=== PATIENT | female | born 1980 | race Caucasian/White ===

== ENCOUNTER 2021-09-26 17:13 | Emergency (ER) | payer OTHER, SELFPAY ==
--- NOTE | ~2021-09-26 | XR_ITS ---
XR elbow LT 2V DATE: 09/26/2021 18:24 INDICATION: Reduction of left elbow dislocation TECHNIQUE: 3 views COMPARISON: Today's prereduction examination FINDINGS: There is reduction of the posterior dislocation of the radius and ulna. There is a comminut ed fracture of the head of the radius IMPRESSION: Comminuted radial head fracture Reduction of posterior dislocation Reviewed, dictated and finalized at location A.
--- NOTE | ~2021-09-26 | XR_ITS ---
XR elbow LT 2V DATE: 09/26/2021 17:32 INDICATION: Fall off a horse. Left elbow injury, deformity TECHNIQUE: 2 views COMPARISON: None FINDINGS: There is posterior dislocation of the radius and ulna at the elbow joint. No apparent fract ure is noted. IMPRESSION: Posterior dislocation of the radius and ulna at the elbow joint Reviewed, dictated and finalized at location A.
[2021-09-26 17:19] VITALS: BP 116/91; PULSE 94; RESP 18; TEMP 36.3; O2SAT 100
[2021-09-26] MEDS: ONDANSETRON INJ 4 MG/2 ML VIAL IV PUSH (18:06)
[2021-09-26] MEDS: MORPHINE SULFATE (*CRX) 4 MG/ML INJ IV PUSH (18:06)
--- NOTE | 2021-09-26 18:10 | ED.UPPEXIN ---
HPI - Extremity Injury (Upper) General Chief Complaint: Extremity Injury, Upper Stated Complaint: Left arm injury Time Seen by Provider: 09/26/21 17:31 History of Present Illness HPI narrative: Patient is a 41-year-old female who presents ER with left elbow pain and deformity. Patient was riding a horse at a walk when it became smooth and she fell off. She fell on an outstretched arm. She had sudden onset pain to her left elbow. No numbness or tingling. Unable to supinate or pronate. Has pain with trying to extend her fingers. She did not strike her head or lose consciousness. She is on no blood thinners. Related Data Allergies Allergy/AdvReac Type Severity Reaction Status Date / Time No Known Allergies Allergy Verified 09/26/21 19:05 Review of Systems Cardiovascular: Cardiovascular: Denies chest pain, Denies rapid heart rate and Denies radiating jaw, neck or arm pain Gastrointestinal: Gastrointestinal: Denies nausea and Denies vomiting Musculoskeletal: Musculoskeletal: Reports arthralgias, Reports joint swelling and Denies muscle cramps Neurologic: Denies syncope, Denies headache(s), Denies focal weakness and Denies numbness PMFSH Past Medical History Medical History (Updated 09/26/21 @ 19:08 by Barrie Guzman MD) Healthy female adult Surgical History Surgical History (Updated 09/26/21 @ 18:20 by Barrie Guzman MD) No pertinent past surgical history Social History Social History (Updated 09/26/21 @ 18:20 by Barrie Guzman MD) Smoking status: Never smoker Exam Narrative: GENERAL: Well-appearing, well-nourished, and in no acute distress. HEAD: Normocephalic, atraumatic. CHEST: Clear to auscultation. No respiratory distress. HEART: Regular rate and rhythm. Normal peripheral pulses. EXTREMITIES: Focused exam left upper extremity reveals deformity and tenderness to left elbow. Unable to flex or extend due to pain. Patient has no tenderness of the forearm or wrist. Patient cannot perform supination due to pain. Brisk capillary refill with 2+ radial pulses. SKIN: Warm, dry, no rash. NEURO: No focal deficits. Alert and oriented x3. PSYCH: Normal mood and affect. Course Course Emergency Course: Discussed case with Dr. Vaughn. On repeat films patient has a radial head fracture that cannot originally be seen. He would like the patient no long-arm posterior splint. He would like her to contact his office in the morning. She will likely be referred to [facility] to an elbow specialist. Patient has been informed of this. She had difficulty tolerating any splinting by the tech due to pain and anxiousness. Patient already received some morphine. We will give her some Valium for anxiety and muscle spasm. We will then resplint the arm. Vital Signs Vital signs: Vital Signs Temperature 97.3 F L 09/26/21 17:19 Pulse Rate 94 09/26/21 17:19 Respiratory Rate 18 09/26/21 17:19 Blood Pressure 116/91 H 09/26/21 17:19 Pulse Oximetry 100 09/26/21 17:19 Temperature 97.3 F L 09/26/21 17:19 Pulse Rate 92 09/26/21 19:05 Respiratory Rate 16 09/26/21 19:05 Blood Pressure 99/60 L 09/26/21 19:05 Pulse Oximetry 99 09/26/21 19:05 Procedures Orthopedic Joint Reduction Joint #1: Orthopedic Joint Reduction Date: 09/26/21 Orthopedic Joint Reduction Time: 18:07 Time Out Performed: Yes Side: left Joint Reduction Location: elbow Analgesia: other (Morphine 4mg) Pre-Procedure Neuro Vascular Exam: normal Technique used: traction/counter-traction Post-reduction neuro exam: intact Post-reduction vascular: intact Post Reduction X-Ray Obtained: Yes Post Reduction X-Ray Results: reduced Splint Applied: Yes (Sling) Patient Tolerated Procedure: well Orthopedic Splinting/Casting Injury #1: Splinting/Casting Date: 09/26/21 Splinting/Casting Time: 19:24 Side: left Upper Extremity Injury
[2021-09-26 19:05] VITALS: BP 99/60; PULSE 92; RESP 16; O2SAT 99
[2021-09-26] MEDS: diazePAM INJ (*CRX) 10 MG/2 ML SYRINGE 5 MG IV PUSH (19:09)
--- NOTE | 2021-09-26 19:15 | PC.NURSE ---
Per EDP Thomas, orthoglass splint needs to be redone for better placement. This RN entered room to set up for new orthoglass. Pts family at bedside, unraveling pts maynor wrap over splint. This RN requested pts family to have a seat in chair designated for family members, and that this RN will finish care of splint. Pts family verbalized understanding.
[2021-09-26 19:41] VITALS: BP 116/65; PULSE 88; RESP 16; O2SAT 98
--- NOTE | 2021-09-26 20:15 | PC.NURSE ---
This RN entered room to discharge pt. Prescription was sent to wrong pharmacy. This RN spoke with EDP and new prescription was sent to correct pharmacy. This RN entered room to finish discharge. Pts family at bedside on phone with [facility] pharmacy. Pharmacy states that they are out of prescription ordered or pt. This RN spoke with provider, new prescription ordered. This RN entered room to finish discharge. Family at beside requested this RN to speak with pts mother on her cell phone, stating they do not think revised prescription will be strong enough for pt. States that she will not be able to sleep. This RN states that if pt has issue with prescription to call ED and this RN will speak with her. Pts family requests to speak with physician. EDP notified and at bedside. After discharge, pts family stated concern over the way this RN asked her to step away from pt when she tried to unravel pts maynor wrap over orthoglass splint. Family states that is was this RNs non-verbal communication that was an issue during care. This RN attempted to explain to pt and family why she was asked to stop unraveling pts maynor wrap in an attempt to resolve issue. Pts family began to speak over this RN, stating you didnt like me from the start . Pt and family eventually walked out of room, refusing wheelchair out of ED.
== END 2021-09-26 20:17 | disposition home or self-care (01) ==
PROVIDERS: Emergency Provider Emergency Medicine
DX: S52.122A Displaced fracture of head of left radius, initial encounter for closed fracture (principal); V80.010A Animal-rider injured by fall from or being thrown from horse in noncollision accident, initial encounter; Y93.52 Activity, horseback riding
CPT/HCPCS: 24600; 73070; 96374; 96375; 99285; A4565; J2270; J2405; J3360